=== PATIENT | female | born 1990 | race Caucasian/White ===

== ENCOUNTER 2023-04-12 07:30 | Day surgery (SDC) | payer OTHER ==
[~2023-04-12] VITALS: Ht 154.9 cm; Wt 63.0 kg
[2023-04-12 09:20] VITALS: BP_SYST 129; PULSE 70; RESP 18; TEMP 97.7; O2SAT 99
[2023-04-12 09:48] LABS: BASOPHILS % (AUTO) 0.6 % (0.0-2.0); EOSINOPHILS # (AUTO) 0.1 K/uL (0.0-0.4); HEMATOCRIT 40.8 % (36-48); HEMOGLOBIN 13.7 g/dL (12.0-16.0); LYMPHOCYTES # (AUTO) 1.7 K/uL (1.0-5.5); LYMPHOCYTES % (AUTO) 27.4 % (20.5-51.5); MEAN CORPUSCULAR HEMOGLOBIN 30 pg (27-31); MEAN CORPUSCULAR HGB CONC 34 % (32-36); MEAN CORPUSCULAR VOLUME 89 fL (79.0-98.0); MONOCYTES # (AUTO) 0.4 K/uL (0.0-1.0); MONOCYTES % (AUTO) 6.2 % (1.7-9.3); NEUTROPHILS # (AUTO) 3.9 K/uL (1.8-7.7); NEUTROPHILS % (AUTO) 64.8 % (40.0-70.0); PLATELET COUNT (AUTO) 298 K/uL (130-430); RED BLOOD CELL COUNT(AUTO) 4.58 MIL/uL (4.2-6.2); RED CELL DISTRIBUTION WIDTH 13.4 % (9.0-15.0)
[2023-04-12 10:01] LABS: PROTHROMBIN TIME 10.3 SECS (9.5-12.5)
[2023-04-12 10:56] LABS: BILIRUBIN,URINE NEGATIVE (NEGATIVE); BLOOD, URINE 2+ (NEGATIVE); COLOR,URINE YELLOW (YELLOW); GLUCOSE,URINE NEGATIVE (NEGATIVE); KETONES,URINE NEGATIVE (NEGATIVE); LEUKOCYTE ESTERASE ,URINE NEGATIVE (NEGATIVE); NITRITE, URINE NEGATIVE (NEGATIVE); PROTEIN URINE NEGATIVE (NEGATIVE); UROBILINOGEN,URINE 0.2 (0.2-1.0)
[2023-04-12] MEDS ORDERED: OXYTOCIN/0.9 % SODIUM CHLORIDE 1,000 ML IV SCH (11:00)
[2023-04-12 11:03] LABS: CLARITY/URINE SLIGHTLY HAZY (CLEAR)
[2023-04-12 11:06] LABS: BACTERIA,URINE FEW /HPF (None Seen); MUCUS,URINE 1+ /LPF (None Seen)
[2023-04-12 11:55] LABS: CALCIUM 9.1 mg/dL (8.4-11.0); CREATININE 0.67 mg/dL (0.55-1.30); POTASSIUM 4.1 mmol/L (3.5-5.1)
[2023-04-12] MEDS ORDERED: OXYTOCIN 10 UNIT/ML VIAL IV ONE (12:45)
[2023-04-12] MEDS ORDERED: ONDANSETRON HCL 4 MG/2 ML VIAL IVP PRN ×2 (13:00→13:45)
[2023-04-12] MEDS ORDERED: OXYCODONE/ACETAMINOPHEN 5-325 TABLET PO PRN ×2 (13:00)
[2023-04-12] MEDS ORDERED: HYDROcodone/ACETAMIN 5-325 MG TAB (NORCO/ VICODIN) PO PRN (13:00)
[2023-04-12] MEDS ORDERED: ONDANSETRON HCL 4 MG/2 ML VIAL ONE ×2 (13:08→14:30)
[2023-04-12] MEDS ORDERED: PROPOFOL 200MG/ 20ML VIAL (DIPRIVAN) IV ONE (13:08)
[2023-04-12] MEDS ORDERED: PHENYLEPHRINE HCL 10 MG/ML VIAL (NEOSYNEPHRINE) ONE (13:08)
[2023-04-12] MEDS ORDERED: ACETAMINOPHEN I.V. 1000 MG 100 ML IV ONE (13:08)
[2023-04-12] MEDS ORDERED: NS IRRIG SOLN 1000 ML IR ONE (13:08)
[2023-04-12] MEDS ORDERED: fentaNYL CITRATE/PF 100 MCG/2 ML AMP ONE (13:12)
[2023-04-12] MEDS ORDERED: MIDAZOLAM HCL 5 MG/5 ML VIAL ONE (13:12)
[2023-04-12] MEDS ORDERED: HYDROmorphone 1 MG/ML INJ. CARTRIDGE IVP PRN (13:45)
[2023-04-12] MEDS ORDERED: fentaNYL CITRATE/PF 100 MCG/2 ML AMP IVP PRN ×2 (13:45)
[2023-04-12] MEDS ORDERED: LR 1,000 ML IV ONE (13:45)
[2023-04-12 15:00] VITALS: BP_SYST 110; PULSE 75; RESP 16
== END 2023-04-12 16:18 | disposition home or self-care (01) ==
LOC: SED 07:30 → SDS 10:00 → SMU 10:30 → SDS 10:30
PROVIDERS: ATTEND Specialist
DX: O03.4 Incomplete spontaneous abortion without complication (principal); N93.9 Abnormal uterine and vaginal bleeding, unspecified; Z79.01 Long term (current) use of anticoagulants
CPT/HCPCS: 59812; 96374; 81000; 80048; 81001; 84702; 85025; 85610; 85730; 86900; 86901; 87086; 36415; 76801; 99285; 88305; J2250; J2405; J2704; J3010; J0131; 76802; 81015; J2370